=== PATIENT | male | born 1990 | race Caucasian/White ===

== ENCOUNTER 2017-09-06 14:51 | Emergency (ER) | payer MEDICAID ==
[~2017-09-06] VITALS: Ht 182.9 cm; Wt 68.7 kg
[2017-09-06] MEDS ORDERED: ketorolac trometh. 30mg/ml inj. IV ONE (15:10)
[2017-09-06 15:25] LABS: BASOPHILS % (AUTO) 0.3 % (0-1); EOSINOPHILS # (AUTO) 0.1 X10'3 (0-0.9); EOSINOPHILS % (AUTO) 0.7 % (0-6); HEMATOCRIT 48.8 % (42.0-52.0); HEMOGLOBIN 16.5 g/dl (14.0-17.9); LYMPHOCYTES # (AUTO) 1.4 X10'3 (1.1-4.8); LYMPHOCYTES % (AUTO) 13.1 % (21-51); MEAN CORPUSCULAR HGB CONC 33.9 % (33.0-36.5); MEAN CORPUSCULAR VOLUME 91.4 FL (78-98); MEAN PLATELET VOLUME 8.1 FL (7.4-10.4); MONOCYTES # (AUTO) 0.6 X10'3 (0-0.9); MONOCYTES % (AUTO) 5.4 % (2-12); NEUTROPHILS # (AUTO) 8.7 X10'3 (1.8-7.7); NEUTROPHILS % (AUTO) 80.5 % (42-75); PLATELET COUNT 230 X10'3 (140-440); RED BLOOD COUNT 5.34 X10'6 (4.70-6.10); RED CELL DISTRIBUTION WIDTH 13.7 % (11.5-14.5); WHITE BLOOD COUNT 10.8 X10'3 (4.5-11.0)
[2017-09-06 15:32] LABS: CLARITY,URINE CLEAR (Clear); COLOR,URINE YELLOW (Yellow); GLUCOSE, URINE NEGATIVE (Neg); KETONES,URINE NEGATIVE (Neg); LEUKOCYTE ESTERASE ,URINE NEGATIVE (Neg); NITRITES, URINE NEGATIVE (Neg); OCCULT BLOOD,URINE NEGATIVE (Neg); PH,URINE 5.5 (4.8-8.0); PROTEIN,URINE NEGATIVE (Neg); UROBILINOGEN,URINE 0.2 E.U/dL (0.2-1.0)
[2017-09-06 15:39] LABS: ALANINE AMINOTRANSFERASE 38 U/L (12-78); ALBUMIN 4.6 G/DL (3.4-5.0); ALBUMIN/GLOBULIN RATIO 1.3 (1.1-1.5); ALKALINE PHOSPHATASE 59 IU/L (46-116); ANION GAP 7 (8-16); ASPARTATE AMINO TRANSFERASE 27 U/L (10-37); BLOOD UREA NITROGEN 11 MG/DL (7-18); BUN/CREATININE RATIO 13.3 (5.4-32.0); CALCIUM 9.4 MG/DL (8.5-10.1); CHLORIDE 102 MMOL/L (99-107); CREATININE 0.83 MG/DL (0.60-1.10); GLUCOSE 93 MG/DL (70-104); LIPASE 116 U/L (73-393); POTASSIUM 4.1 MMOL/L (3.5-5.1); SODIUM 137 MMOL/L (135-145); TOTAL CARBON DIOXIDE 28.1 MMOL/L (24-32); TOTAL PROTEIN 8.1 G/DL (6.4-8.2); eGFR > 90 ML/MIN
[2017-09-06 15:42] LABS: UA COLLECTION TYPE VOIDED
[2017-09-06] MEDS ORDERED: IBUP-1984 PO (16:00)
[2017-09-06 16:07] VITALS: BP 125/68
== END 2017-09-06 16:13 | disposition home or self-care (01) ==
LOC: ER 14:51
DX: R10.32 Left lower quadrant pain (principal); N50.82 Scrotal pain
CPT/HCPCS: 36415; 80053; 81003; 83690; 85025; 96374; 99284; J1885

== ENCOUNTER 2018-03-24 12:53 | Emergency (ER) | payer MEDICAID ==
[~2018-03-24] VITALS: Ht 182.9 cm; Wt 70.0 kg
[2018-03-24 13:04] VITALS: BP 116/81
[2018-03-24] MEDS ORDERED: ALBU18HF2 INH (13:49)
[2018-03-24] MEDS ORDERED: ipratropium/albuterol 3ml nebule NEB ONE (13:50)
== END 2018-03-24 15:11 | disposition left against medical advice (07) ==
LOC: ER 12:54
DX: R05 Cough (principal); R06.02 Shortness of breath; R06.2 Wheezing; F17.200 Nicotine dependence, unspecified, uncomplicated; Z79.899 Other long term (current) drug therapy; Z56.0 Unemployment, unspecified
CPT/HCPCS: 99283

== ENCOUNTER 2018-10-06 12:49 | Emergency (ER) | payer MEDICAID ==
[~2018-10-06] VITALS: Ht 182.9 cm; Wt 77.3 kg
[~2018-10-06 12:49] MED LIST: ALBU18HF2 INH
[2018-10-06 13:07] VITALS: BP 129/89
[2018-10-06] MEDS ORDERED: SULF1TAB49 PO (13:55)
[2018-10-06] MEDS ORDERED: sulfamethoxazole/trimethoprim DS (800/160mg) tablet PO ONE (13:55)
== END 2018-10-06 14:15 | disposition home or self-care (01) ==
LOC: ER 12:50
DX: L08.9 Local infection of the skin and subcutaneous tissue, unspecified (principal); J34.89 Other specified disorders of nose and nasal sinuses; R22.0 Localized swelling, mass and lump, head; Z56.0 Unemployment, unspecified
CPT/HCPCS: 99283

== ENCOUNTER 2018-10-09 14:27 | Emergency (ER) | payer MEDICAID ==
[~2018-10-09] VITALS: Ht 182.9 cm; Wt 77.2 kg
[~2018-10-09 14:27] MED LIST changes: +SULF1TAB49 PO
[2018-10-09 14:33] VITALS: BP 142/93
== END 2018-10-09 16:48 | disposition left against medical advice (07) ==
LOC: ER 14:27
DX: R20.0 Anesthesia of skin (principal); Z53.21 Procedure and treatment not carried out due to patient leaving prior to being seen by health care provider

== ENCOUNTER 2023-07-09 22:49 | Emergency (ER) | payer BC, MEDICAID ==
[~2023-07-09] VITALS: Ht 182.9 cm; Wt 81.8 kg
[~2023-07-09 22:49] MED LIST changes: -SULF1TAB49 PO
[2023-07-09 23:00] VITALS: TEMP 97.8
[2023-07-09] MEDS ORDERED: albuterol 2.5 MG/3 ML nebule CONTNEB STA (23:06)
[2023-07-09] MEDS ORDERED: ipratropium/albuterol 3ml nebule NEB ONE (23:10)
[2023-07-09 23:14] VITALS: PULSE 104; RESP 22; O2SAT 94
[2023-07-09 23:57] VITALS: BP 113/84
[2023-07-10] MEDS ORDERED: ondansetron 4mg rapidly disintigrating tab PO ONE (00:10)
[2023-07-10 00:33] VITALS: PULSE 114; RESP 18; O2SAT 95
[2023-07-10] MEDS ORDERED: ALBU8HFA PO (00:38)
[2023-07-10] MEDS ORDERED: PRED20TA PO (00:38)
== END 2023-07-10 01:41 | disposition home or self-care (01) ==
LOC: ER 22:51
DX: R06.03 Acute respiratory distress (principal); J45.901 Unspecified asthma with (acute) exacerbation; J06.9 Acute upper respiratory infection, unspecified; F17.200 Nicotine dependence, unspecified, uncomplicated; Z88.8 Allergy status to other drugs, medicaments and biological substances
CPT/HCPCS: 71045; 94640; 94644; 94760; 99285; A7015

== ENCOUNTER 2023-07-10 04:57 | Inpatient (IN) | payer BC, MEDICAID ==
[~2023-07-10] VITALS: Ht 182.9 cm; Wt 80.5 kg
[~2023-07-10 04:57] MED LIST changes: +ALBU8HFA PO; +PRED20TA PO
[2023-07-10] MEDS ORDERED: albuterol 2.5 MG/3 ML nebule CONTNEB PRN (05:05)
[2023-07-10] MEDS ORDERED: normal saline 1000ML IV soln IVB ONE (05:05)
[2023-07-10] MEDS ORDERED: methylPREDNISolone sod succ 125mg/2ml vial IV ONE (05:05)
[2023-07-10 05:09] VITALS: TEMP 97
[2023-07-10 05:43] LABS: BASOPHILS % (AUTO) 0.4 % (0-1); EOSINOPHILS # (AUTO) 0.1 X10'3 (0-0.9); EOSINOPHILS % (AUTO) 1.1 % (0-6); HEMATOCRIT 49.2 % (42.0-52.0); HEMOGLOBIN 16.7 g/dl (14.0-17.9); LYMPHOCYTES # (AUTO) 0.7 X10'3 (1.1-4.8); LYMPHOCYTES % (AUTO) 9.4 % (21-51); MEAN CORPUSCULAR HGB CONC 33.9 g/dL (33.0-36.5); MEAN CORPUSCULAR VOLUME 91.5 FL (78-98); MEAN PLATELET VOLUME 8.8 FL (7.4-10.4); MONOCYTES # (AUTO) 0.7 X10'3 (0-0.9); MONOCYTES % (AUTO) 9.5 % (2-12); NEUTROPHILS # (AUTO) 6.3 X10'3 (1.8-7.7); NEUTROPHILS % (AUTO) 79.6 % (42-75); PLATELET COUNT 200 X10'3 (140-440); RED BLOOD COUNT 5.38 X10'6 (4.70-6.10); RED CELL DISTRIBUTION WIDTH 13.2 % (11.5-14.5); WHITE BLOOD COUNT 7.9 X10'3 (4.5-11.0)
[2023-07-10 05:44] VITALS: PULSE 100; RESP 19; O2SAT 94
[2023-07-10 05:51] LABS: ALANINE AMINOTRANSFERASE 25 U/L (12-78); ALBUMIN 4.6 G/DL (3.4-5.0); ALBUMIN/GLOBULIN RATIO 1.4 (1.1-1.5); ALKALINE PHOSPHATASE 67 IU/L (46-116); ANION GAP 10 (8-16); ASPARTATE AMINO TRANSFERASE 19 U/L (10-37); BILIRUBIN,TOTAL 1.5 MG/DL (0.1-1.0); BLOOD UREA NITROGEN 10 MG/DL (7-18); BUN/CREATININE RATIO 10.6 (10.0-20.0); CHLORIDE 105 MMOL/L (99-107); CREATININE 0.94 MG/DL (0.60-1.10); GLUCOSE 128 MG/DL (70-104); POTASSIUM 3.8 MMOL/L (3.5-5.1); SODIUM 140 MMOL/L (135-145); TOTAL CARBON DIOXIDE 25.4 MMOL/L (24-32); TOTAL PROTEIN 7.9 G/DL (6.4-8.2); eCRCL 124 ML/MIN; eGFR > 90 ML/MIN
[2023-07-10] MEDS ORDERED: magnesium 2GM in 50ml NS 50 ML IV ONE ×2 (05:55→06:15)
[2023-07-10 05:58] LABS: PRO BRAIN NATRIURETIC PEPTIDE 39 PG/ML (0-125)
[2023-07-10 07:25] VITALS: PULSE 128; RESP 16
[2023-07-10 07:46] VITALS: BP 124/72; PULSE 124; RESP 18; O2SAT 92
[2023-07-10] MEDS ORDERED: acetaminophen 325mg tablet PO PRN (09:00)
[2023-07-10] MEDS ORDERED: ondansetron/PF 4mg/2ml inj IV PRN (09:00)
[2023-07-10] MEDS ORDERED: mag hydrox/Alum hydrox/simeth 30ml oral suspension PO PRN (09:00)
[2023-07-10] MEDS ORDERED: magnesium 2GM in 50ml NS 50 ML IV PRN (09:00)
[2023-07-10] MEDS ORDERED: magnesium 4gm in 100ml NS 100 ML IV PRN (09:00)
[2023-07-10] MEDS ORDERED: potassium Cl 20 mEq SR tablet PO PRN ×2 (09:00)
[2023-07-10] MEDS ORDERED: acetaminophen 650mg rectal suppository RC PRN (09:00)
[2023-07-10] MEDS ORDERED: magnesium Cl slow-release 64mg tablet PO PRN (09:00)
[2023-07-10] MEDS ORDERED: potassium Cl 40MEQ/1/2NS 520ml 520 ML IV PRN (09:00)
[2023-07-10] MEDS ORDERED: magnesium hydroxide 30ml (MOM) UD suspension PO PRN (09:00)
--- NOTE | 2023-07-10 11:37 | NUR ---
Pt eloped from ED. CN and Dr Choudhury notified and aware. Pt left IV on bed. No other IVs in place.
--- NOTE | 2023-07-10 11:40 | NUR ---
Dr Reed Ledezma, Resident MD for Dr Wolf notified, Not Dr Choudhury
[2023-07-10] MEDS ORDERED: methylPREDNISolone sod succ 125mg/2ml vial IV SCH (14:00)
[2023-07-10] MEDS ORDERED: K and/or MAG REPLACEMENT MC SCH (20:00)
[2023-07-10] MEDS ORDERED: docusate sod 100mg capsule PO SCH (20:00)
[2023-07-11] MEDS ORDERED: CefTRIAXone 2gm/D5W 50ml BAG 50 ML IV SCH (08:00)
== END 2023-07-10 12:12 | disposition left against medical advice (07) | DRG 203 ==
LOC: ER 04:57 → ED HOLD 09:22
PROVIDERS: ADMIT Internal Medicine; ATTEND Internal Medicine
DX: J45.901 Unspecified asthma with (acute) exacerbation (principal); R73.9 Hyperglycemia, unspecified; Z72.0 Tobacco use; F10.20 Alcohol dependence, uncomplicated; Z20.822 Contact with and (suspected) exposure to COVID-19; Z56.0 Unemployment, unspecified
CPT/HCPCS: 36415; 80053; 83605; 83880; 84484; 85025; 87040; 87502; 87503; 87811; 94640; 94760; 96365; 96375; 99285; G0378; J2930; J3475; J7030